=== PATIENT | male | born 1960 | race Caucasian/White ===

== ENCOUNTER 2017-01-18 18:34 | Emergency (ER) | payer OTHER ==
[~2017-01-18] VITALS: Ht 177.8 cm; Wt 74.0 kg
[2017-01-18 18:35] VITALS: BP 152/83; PULSE 87; RESP 16; TEMP 98.6; O2SAT 97
[2017-01-18 19:18] VITALS: BP 164/93; PULSE 77; RESP 15; TEMP 97.9; O2SAT 97
[2017-01-18] MEDS ORDERED: ATOR10TA15 PO (19:23)
[2017-01-18] MEDS ORDERED: SODIUM CHLOR 0.9% 1000 ML INJ 1,000 ML IV ONE (19:30)
[2017-01-18] MEDS ORDERED: KETOROLAC TROMETHAMINE 30 MG/ML (IVP) VIAL IV PUSH ONE (19:30)
[2017-01-18] MEDS ORDERED: ONDANSETRON HCL 4 MG/2 ML VIAL IV PUSH ONE (19:30)
--- NOTE | 2017-01-18 19:36 | PD ---
HPI Chief Complaint: Flank/Kidney Pain Time Seen by Provider: 19:21 Travel History International Travel<30 days: No Contact w/Intl Traveler<30days: No Traveled to known affect area: No History of Present Illness HPI 56-year-old male presents emergency department with complaints of right lower back pain and urinary urgency. He states that he is concerned that he started developing a kidney stone. He states the pain started earlier this morning. It was mild but gradually intensified throughout the day. He states the pain was so severe he thought he was going to pass out for pain. He has pain radiating around his right flank into his right testicle. Some nausea but no vomiting. He's had a decreased appetite. He's had urinary frequency and urgency. He denies any hematuria. No vomiting. No fever chills. He states that he urinated well just coming into the ER and states that his pain has nearly resolved. PFSH Past Medical History Narrative Medical Hypercholesterolemia High Cholesterol: Yes Tetanus Vaccination: < 5 Years Influenza Vaccination: No Past Surgical History Narrative Surgical Appendectomy Appendectomy: Yes Social History Alcohol Use: No Tobacco Use: Yes Substance Use: No Allergies-Medications (Allergen,Severity, Reaction): Coded Allergies: naproxen (Verified Allergy, Severe, Itching, 01/18/17) Reported Meds & Prescriptions Reported Meds & Active Scripts Active Flomax (Tamsulosin HCl) 0.4 Mg Cap 0.4 Mg PO HS Percocet (Oxycodone-Acetaminophen) 5-325 mg Tab 1-2 Tab PO Q6H PRN Zofran Odt (Ondansetron Odt) 4 Mg Tab 4 Mg SL Q6HR PRN Reported Aspirin 81 Mg Chew 81 Mg CHEW DAILY Atorvastatin (Atorvastatin Calcium) 10 Mg Tab 10 Mg PO HS Review of Systems Except as stated in HPI: all other systems reviewed are Neg General / Constitutional: No: Fever Eyes: No: Visual changes HENT: No: Headaches Cardiovascular: No: Chest Pain or Discomfort Respiratory: No: Shortness of Breath Gastrointestinal: Positive: Nausea, No: Abdominal Pain Genitourinary: Positive: Urgency, Frequency, Dysuria, Flank Pain Musculoskeletal: Positive: Pain Skin: No Rash Neurologic: No: Weakness Psychiatric: No: Depression Endocrine: No: Polydipsia Hematologic/Lymphatic: No: Easy Bruising Physical Exam Narrative GENERAL: Well-developed, well-nourished in no apparent distress. Nontoxic appearing. HEAD: Normocephalic, atraumatic. EYES: Pupils equal round and reactive. Extraocular motions intact. No scleral icterus. No injection or drainage. ENT: Nose clear. Throat without erythema, tonsillar hypertrophy or exudate. Uvula midline. Airway patent. NECK: Trachea midline. Supple, nontender, moves head freely. No central bony tenderness or spasm. CARDIOVASCULAR: Regular rate and rhythm without murmurs, gallops, or rubs. RESPIRATORY: Clear to auscultation. Breath sounds equal bilaterally. No wheezes , rales, or rhonchi. GASTROINTESTINAL: Abdomen soft, non-tender, nondistended. No hepato-splenomegaly , or palpable masses. No guarding. EXTREMITIES: No clubbing, cyanosis, or edema. No joint tenderness. BACK: Nontender without deformity. No flank tenderness. NEUROLOGICAL: Awake, alert and oriented x 3 .Cranial nerves grossly intact. Motor and sensory grossly within normal limits. Normal speech. Data Data Last Documented VS Vital Signs Date Time Temp Pulse Resp B/P (MAP) Pulse Ox O2 Delivery O2 Flow Rate FiO2 01/18/17 19:18 97.9 77 15 164/93 (116) 97 Room Air Orders Orders Complete Blood Count With Diff (01/18/17 19:28) Basic Metabolic Panel (Bmp) (01/18/17 19:28) Urinalysis - C+S If Indicated (01/18/17 19:28) Iv Access Insert/Monitor (01/18/17 19:28) Sodium Chlor 0.9% 1000 Ml Inj (Ns 1000 M (01/18/17 19:30) Ketorolac Inj (Toradol Inj) (01/18/17 19:30) Ondansetron Inj (Zofran Inj) (01/18/17 19:30) Ct Abd/Pel W/O Iv Contrast (01/18/17 19:28) Oxycodone-Acetamin 5-325 Mg (Percocet (01/18/17 21:30) Promethazine (Phenergan) (01/18/17 21:30) Ed Discharge Order (01/18/17 21:34) Labs Laboratory Tests Test 01/18/17 19:37 White Blood Count 25.6 TH/MM3 Red Blood Count 5.28 MIL/MM3 Hemoglobin 15.8 GM/DL Hematocrit 47.0 % Mean Corpuscular Volume 89.0 FL Mean Corpuscular Hemoglobin 29.8 PG Mean Corpuscular Hemoglobin Concent 33.5 % Red Cell Distribution Width 13.4 % Platelet Count 306 TH/MM3 Mean Platelet Volume 9.5 FL Neutrophils (%) (Auto) 78.6 % Lymphocytes (%) (Auto) 12.5 % Monocytes (%) (Auto) 7.8 % Eosinophils (%) (Auto) 0.6 % Basophils (%) (Auto) 0.5 % Neutrophils # (Auto) 20.1 TH/MM3 Lymphocytes # (Auto) 3.2 TH/MM3 Monocytes # (Auto) 2.0 TH/MM3 Eosinophils # (Auto) 0.2 TH/MM3 Basophils # (Auto) 0.1 TH/MM3 CBC Comment DIFF FINAL Differential Comment Urine Color LIGHT-YELLOW Urine Turbidity CLEAR Urine pH 6.0 Urine Specific [place] 1.007 Urine Protein NEG mg/dL Urine Glucose (UA) NEG mg/dL Urine Ketones TRACE mg/dL Urine Occult Blood MOD Urine Nitrite NEG Urine Bilirubin NEG Urine Urobilinogen LESS THAN 2.0 MG/DL Urine Leukocyte Esterase NEG Urine RBC 14 /hpf Urine WBC 1 /hpf Urine Bacteria RARE /hpf Microscopic Urinalysis Comment CULT NOT INDICATED Blood Urea Nitrogen 20 MG/DL Creatinine 1.28 MG/DL Random Glucose 110 MG/DL Calcium Level 9.6 MG/DL Sodium Level 135 MEQ/L Potassium Level 3.9 MEQ/L Chloride Level 102 MEQ/L Carbon Dioxide Level 25.1 MEQ/L Anion Gap 8 MEQ/L Estimat Glomerular Filtration Rate 58 ML/MIN [facility] Medical Decision Making Medical Screen Exam Complete: Yes Emergency Medical Condition: Yes Medical Record Reviewed: Yes Interpretation(s) CT abdomen and pelvis: 2.6 cm UVJ stone Laboratory Tests Test 01/18/17 19:37 White Blood Count 25.6 TH/MM3 Red Blood Count 5.28 MIL/MM3 Hemoglobin 15.8 GM/DL Hematocrit 47.0 % Mean Corpuscular Volume 89.0 FL Mean Corpuscular Hemoglobin 29.8 PG Mean Corpuscular Hemoglobin Concent 33.5 % Red Cell Distribution Width 13.4 % Platelet Count 306 TH/MM3 Mean Platelet Volume 9.5 FL Neutrophils (%) (Auto) 78.6 % Lymphocytes (%) (Auto) 12.5 % Monocytes (%) (Auto) 7.8 % Eosinophils (%) (Auto) 0.6 % Basophils (%) (Auto) 0.5 % Neutrophils # (Auto) 20.1 TH/MM3 Lymphocytes # (Auto) 3.2 TH/MM3 Monocytes # (Auto) 2.0 TH/MM3 Eosinophils # (Auto) 0.2 TH/MM3 Basophils # (Auto) 0.1 TH/MM3 CBC Comment DIFF FINAL Differential Comment Urine Color LIGHT-YELLOW Urine Turbidity CLEAR Urine pH 6.0 Urine Specific [place] 1.007 Urine Protein NEG mg/dL Urine Glucose (UA) NEG mg/dL Urine Ketones TRACE mg/dL Urine Occult Blood MOD Urine Nitrite NEG Urine Bilirubin NEG Urine Urobilinogen LESS THAN 2.0 MG/DL Urine Leukocyte Esterase NEG Urine RBC 14 /hpf Urine WBC 1 /hpf Urine Bacteria RARE /hpf Microscopic Urinalysis Comment CULT NOT INDICATED Blood Urea Nitrogen 20 MG/DL Creatinine 1.28 MG/DL Random Glucose 110 MG/DL Calcium Level 9.6 MG/DL Sodium Level 135 MEQ/L Potassium Level 3.9 MEQ/L Chloride Level 102 MEQ/L Carbon Dioxide Level 25.1 MEQ/L Anion Gap 8 MEQ/L Estimat Glomerular Filtration Rate 58 ML/MIN Differential Diagnosis MDM: High Differential diagnoses: AAA,Fracture, sprain, strain, HNP, nerve or vascular injury, epidural abscess, pilonidal cyst, pyelonephritis, UTI, nephrolithiasis, ureterolithiasis Narrative Course IV access is obtained. Patient's given a liter bolus of saline, Zofran 4 mg IV , Toradol 30 mg IV. CBC, chemistry, UA, CT abdomen and pelvis. Patient's pain is nearly completely resolved. He is resting comfortably examination room. Patient's laboratory tests reveal a right UVJ stone measuring 2.6 cm. No hydronephrosis. Patient does have D margination with 25, 000 white count secondary to the kidney stone. Kidney function is within limits. This is right ureterolithiasis Diagnosis Primary Impression: right ureterolithiasis Patient Instructions: Narcotic given in the ED, General Instructions Additional Instructions: Rest. Increase fluids. Medications as directed. Strain all urine and save the stone. Follow-up with a urologist in the next 2-3 days. Return to the ER if any problems. Med/Other Pt SpecificInfo: Prescription(s) given Scripts Tamsulosin (Flomax) 0.4 Mg Cap 0.4 MG PO HS for Manage Prostate Problems, #30 CAP 0 Refills Prov: Ar Irene MD 01/18/17 Oxycodone-Acetaminophen (Percocet) 5-325 mg Tab 1-2 TAB PO Q6H Y for PAIN, #30 TAB 0 Refills Prov: Ar Irene MD 01/18/17 Ondansetron Odt (Zofran Odt) 4 Mg Tab 4 MG SL Q6HR Y for Nausea/Vomiting, #12 TAB 0 Refills Prov: Ar Irene MD 01/18/17 Disposition: 01 DISCHARGE HOME Condition: Stable Kan Rowe Jan 18, 2017 19:36
[2017-01-18] MEDS ORDERED: ASPI81CH CHEW (19:42)
[2017-01-18 19:56] LABS: BACTERIA, URINE RARE /hpf; BLOOD, URINE MOD (NEG); COMMENT (UR) CULT NOT INDICATED; CULTURE IF INDICATED CULT NOT INDICATED; GLUCOSE,URINE NEG (NEG); KETONE, URINE TRACE mg/dL (NEG); NITRITE,URINE NEG (NEG); URINE COLOR LIGHT-YELLOW (YELLW/STRAW)
[2017-01-18 20:00] LABS: AUTOMATED NEUTROPHIL # 20.1 TH/MM3 (1.8-7.7); BASOPHIL # 0.1 TH/MM3 (0-0.2); BASOPHIL % 0.5 % (0.0-2.0); EOSINOPHIL # 0.2 TH/MM3 (0-0.4); EOSINOPHIL % 0.6 % (0.0-4.0); HEMO FLAGS DIFF FINAL; LYMPH % 12.5 % (9.0-44.0); LYMPHOCYTE # 3.2 TH/MM3 (1.0-4.8); MEAN CORPUSCULAR HEMOGLOBIN 29.8 PG (27.0-34.0); MEAN CORPUSCULAR HGB CONC 33.5 % (32.0-36.0); MONO % 7.8 % (0.0-8.0); NEUT % 78.6 % (16.0-70.0); PLATELET COUNT 306 TH/MM3 (150-450); RED BLOOD COUNT 5.28 MIL/MM3 (4.50-5.90); RED CELL DISTRIBUTION WIDTH 13.4 % (11.6-17.2); WHITE BLOOD COUNT 25.6 TH/MM3 (4.0-11.0)
[2017-01-18 20:14] LABS: BICARBONATE 25.1 MEQ/L (21.0-32.0); POTASSIUM 3.9 MEQ/L (3.5-5.1)
--- NOTE | 2017-01-18 21:23 | RADRPT ---
EXAM DATE/TIME: 01/18/2017 20:57 [facility] COMPARISON: No previous studies available for comparison. INDICATIONS : Right flank pain. ORAL CONTRAST: No oral contrast ingested. RADIATION DOSE: 5.60 CTDIvol (mGy) MEDICAL HISTORY : None SURGICAL HISTORY : Appendectomy. ENCOUNTER: Initial ACUITY: 1 day PAIN SCALE: 6/10 LOCATION: Right lateral TECHNIQUE: Volumetric scanning of the abdomen and pelvis was performed. Using automated exposure control and ad justment of the mA and/or kV according to patient size, radiation dose was kept as low as reasonably achievable to obtain optimal diagnostic quality images. DICOM format image data is available electro nically for review and comparison. FINDINGS: LOWER LUNGS: The visualized lower lungs are clear. LIVER: Homogeneous density without lesion. There is no dilation of the biliary tree. No calcified gallston es. SPLEEN: Normal size without lesion. PANCREAS: Within normal limits. KIDNEYS: The right renal collecting system is mildly distended. There is significant perinephric and perirenal stranding. A 2.6 mm calculus is identified in the distal right ureter just proximal to the ureterove sical junction. The left kidney and collecting system are unremarkable. ADRENAL GLANDS: Within normal limits. VASCULAR: There is no aortic aneurysm. BOWEL/MESENTERY: The stomach, small bowel, and colon demonstrate no acute abnormality. There is no free intraperitone al air or fluid. ABDOMINAL WALL: Within normal limits. RETROPERITONEUM: There is no lymphadenopathy. BLADDER: No wall thickening or mass. REPRODUCTIVE: Within normal limits. INGUINAL: There is no lymphadenopathy or hernia. MUSCULOSKELETAL: Within normal limits for patient age. CONCLUSION: 1. 2.6 mm calculus in the distal right ureter causing obstructive uropathy. 2. Uncomplicated diverticulosis Mckinley Chawla MD on January 18, 2017 at 21:19 Board Certified Radiologist. This report was verified electronically.
[2017-01-18] MEDS ORDERED: PROMETHAZINE HCL 25 MG TAB PO ONE (21:30)
[2017-01-18] MEDS ORDERED: oxyCODONE/ACETAMINOPHEN 5 MG/325 MG TAB PO ONE (21:30)
[2017-01-18] MEDS ORDERED: PERC5TAB12 PO (21:33)
[2017-01-18] MEDS ORDERED: ZOFR4TAB3 SL (21:33)
[2017-01-18] MEDS ORDERED: TAMS5CAP PO (21:33)
== END 2017-01-18 21:47 | disposition home or self-care (01) ==
LOC: NEPD 18:34
DX: N20.1 Calculus of ureter (principal); E78.5 Hyperlipidemia, unspecified; F17.200 Nicotine dependence, unspecified, uncomplicated; Z79.82 Long term (current) use of aspirin; Z79.899 Other long term (current) drug therapy
CPT/HCPCS: 74176; 80048; 81001; 85025; 96361; 96374; 96375; 99285; J1885; J2405; J7030; Q0169

== ENCOUNTER → 2017-02-19 | Day surgery (SDC) | payer OTHER ==
[~2017-02-19] MED LIST: ACETAMINOPHEN 1000 MG/100 ML 100 ML IV ONE; ASPI-516 CHEW; ATOR10TA15 PO; LACTATED RINGER'S 1000 ML INJ 1,000 ML ONE; MEPERIDINE HCL 50 MG/ML VIAL ONE; MIDAZOLAM HCL 2 MG/2 ML VIAL ONE; ONDANSETRON HCL 4 MG/2 ML VIAL IV PUSH ONE; PERC5TAB12 PO; PROPOFOL 200 MG/20 ML AMP IV ONE; TAMS5CAP PO; ZOFR4TAB3 SL; ceFAZolin INJ 1,000 MG VIAL ONE
--- NOTE | 2017-02-19 09:21 | TN ---
cc: MD RAY,ABIGAIL GIBSON M.D. DATE OF SURGERY 02/19/2017 PREOPERATIVE DIAGNOSIS Bilateral inguinal hernia. POSTOPERATIVE DIAGNOSIS Bilateral inguinal hernia. PROCEDURE Laparoscopic bilateral inguinal hernia with mesh. ANESTHESIA General SURGEON Dr. Khan INDICATIONS This is a pleasant 56-year-old gentleman who was found to have bilateral inguinal hernias. Plans were made for repair. His left inguinal hernia was bigger than the right which was asymptomatic. PROCEDURE The patient was taken to the operating room, placed in the supine position. After anesthesia, his abdomen was prepped with Betadine. Time-out was done. He was given preoperative antibiotics. We make an incision just below the umbilicus off to the left a little bit. We dissect down to the fascia. The preperitoneal space was then entered. With blunt dissection, we placed a dissecting balloon, passed it all way to the pubic tubercle under videoscopic surveillance. This preperitoneal space was then insufflated with 40 pumps of the balloon. The balloon was then removed. A balloon trocar was then placed and then the preperitoneal space was insufflated with a 11 mmHg pressure CO2. We then direct our attention to the left side. We placed two other working ports, a 5 mm at the pubic tubercle and a 5 mm in between the two previously placed ports through the previous scar. No other abnormalities seen. We could see an obvious right or left indirect and a direct defect. On the right side, he has a direct defect as well. We then dissect out a posterior window along the cord structures identifying the vas deferens and the vessels. The epigastric vessel was identified. After the posterior window was made, we then placed a piece of polypropylene mesh cut to size of 3 x 6 cm with a slit to accommodate the cord structures and place this and tack it to the pubic tubercle, the anterior abdominal wall and out laterally avoiding the cutaneous nerves. The tails were then secured to themselves with the tacking device. We then direct our attention to the right side. He had a previous appendectomy, an open one and there was some scar tissue during the dissection. A small rent was made in the peritoneum which was closed with a PDS Endoloop. We were able to dissect around the vas deferens and the cord structures. A direct defect is seen. A similar piece of mesh was then placed and secured to the pubic tubercle, Arsen's ligament and anterior abdominal wall. The tails were then fashion to themselves overlapping. Because there was a small gap at the tails, a 3 x 3 piece of mesh was then placed over this to buttress the crotch of the mesh and this is secured to the mesh itself and the anterior abdominal wall and the pubic tubercle. We did place another piece of mesh in the midline to overlap the meshes from both sides and to further buttress the left direct defect that was the bigger one and this was secured to the mesh, the anterior pubic tubercle and the anterior abdominal wall. We then place 15 cc of Marcaine in the preperitoneal space for postop pain control and removed the trocars. The fascial layer at the umbilicus was closed with a 0 Vicryl and skin was closed with a 4-0 Vicryl at all three sites. Steri-Strips applied. Sterile bandage applied. The patient tolerated the procedure well and had no immediate postop complications. MD SLIM Adan/ZARA /9:03 AM /9:17 AM
== END | disposition home or self-care (01) ==
LOC: ESDC 06:13
PROVIDERS: ATTEND Surgery
DX: K40.20 Bilateral inguinal hernia, without obstruction or gangrene, not specified as recurrent (principal)
CPT/HCPCS: 00840; 49650; C1727; C1781; J0131; J0690; J2175; J2250; J2405; J3010; J7120